=== PATIENT | female | born 2000 | race American Indian/Alaskan Native ===

== ENCOUNTER 2019-09-07 16:56 | Emergency (ER) | payer SELFPAY ==
--- NOTE | 2019-09-07 17:39 | EDM.PDOC ---
ED HPI GENERAL MEDICAL PROBLEM - General Chief Complaint: [employer] Problem Stated Complaint: BLEEDING, ABOUT 5 WEEKS Time Seen by Provider: 09/07/19 17:33 Source of Information: Reports: Patient History Limitations: Reports: No Limitations - History of Present Illness INITIAL COMMENTS - FREE TEXT/NARRATIVE: HISTORY AND PHYSICAL: History of present illness: Patient is a 19-year-old female presents to the ED with concern of bleeding in . Patient states she took a home test 3 days ago and was positive. This morning had a small amount of blood on the tissue when she wiped. She states LMP was July 26. She stopped her control the middle of July and has not had a period since stopping it. She denies any abdominal pain. Review of systems: As per history of present illness and below otherwise all systems reviewed and negative. Past medical history: As per history of present illness and as reviewed below otherwise noncontributory. Surgical history: As per history of present illness and as reviewed below otherwise noncontributory. Social history: No reported history of drug or alcohol abuse. Family history: As per history of present illness and as reviewed below otherwise noncontributory. Physical exam: General: Patient sitting comfortably in no acute distress and nontoxic appearing HEENT: Atraumatic, normocephalic, pupils reactive, negative for conjunctival pallor or scleral icterus, mucous membranes moist, throat clear, neck supple, nontender, trachea midline. No meningeal signs. Lungs: Clear to auscultation, breath sounds equal bilaterally, chest nontender. Heart: S1S2, regular, negative for clicks, rubs, or overt murmur. Abdomen: Soft, nondistended, nontender. Negative for masses or hepatosplenomegaly. Negative for costovertebral tenderness. No rigidity, rebound , guarding. Pelvis: Stable nontender. Genitourinary: Deferred. Rectal: Deferred. Extremities: Atraumatic, negative for cords or calf pain. Neurovascular unremarkable. Neuro: Awake, alert, oriented. Cranial nerves II through XII unremarkable. Cerebellum unremarkable. Motor and sensory unremarkable throughout. Exam nonfocal. Notes: Diagnostics: urine hcg, CBC, ABO/RH, HCG quant Therapeutics: none Prescriptions: none Impression: Vaginal bleeding in Plan: Pelvic rest as instructed Follow up with meat team member on Monday, please call to schedule an appointment Return to ED as needed as discussed Definitive disposition and diagnosis as appropriate pending reevaluation and review of above. - Related Data Allergies Allergy/AdvReac Type Severity Reaction Status Date / Time No Known Allergies Allergy Verified 09/07/19 17:14 Home Meds: Home Meds . [No Known Home Meds] 09/07/19 [History] Past Medical History - Past Health History Medical/Surgical History: Denies Medical/Surgical History - Infectious Disease History Infectious Disease History: Reports: None Social & Family History - Family History Family Medical History: Noncontributory - Tobacco Use Smoking Status *Q: Never Smoker - Caffeine Use Caffeine Use: Reports: None - Recreational Drug Use Recreational Drug Use: No ED ROS GENERAL - Review of Systems Review Of Systems: Comprehensive ROS is negative, except as noted in HPI. ED EXAM - Physical Exam Exam: See Below (see dictation) Course - Vital Signs Last Recorded V/S: Last Vital Signs Temp 96.8 F L 09/07/19 19:26 Pulse 85 09/07/19 19:26 Resp 16 09/07/19 19:26 BP 113/71 09/07/19 19:26 Pulse Ox 97 09/07/19 19:26 - Orders/Labs/Meds Labs: Laboratory Tests 09/07/19 09/07/19 09/07/19 Range/Units 17:14 17:46 17:46 WBC 10.66 (4.0-11.0) K/uL RBC 4.66 (4.30-5.90) M/uL Hgb 14.6 (12.0-16.0) g/dL Hct 40.1 (36.0-46.0) % MCV 86.1 (80.0-98.0) fL MCH 31.3 (27.0-32.0) pg MCHC 36.4 (31.0-37.0) g/dL RDW Std Deviation 38.1 (28.0-62.0) fl RDW Coeff of [place] 12 (11.0-15.0) % Plt Count 267 (150-400) K/uL MPV 9.90 (7.40-12.00) fL Neut % (Auto) 65.4 (48.0-80.0) % Lymph % (Auto) 25.4 (16.0-40.0) % [place] % (Auto) 5.8 (0.0-15.0) % Eos % (Auto) 3.2 (0.0-7.0) % Baso % (Auto) 0.2 (0.0-1.5) % Neut # (Auto) 7.0 H (1.4-5.7) K/uL Lymph # (Auto) 2.7 H (0.6-2.4) K/uL [place] # (Auto) 0.6 (0.0-0.8) K/uL Eos # (Auto) 0.3 (0.0-0.7) K/uL Baso # (Auto) 0.0 (0.0-0.1) K/uL Nucleated RBC % 0.0 /100WBC Nucleated RBCs # 0 K/uL HCG, Quant mIU/mL Urine HCG, Qual POSITIVE (NEGATIVE) Blood Type O POSITIVE 09/07/19 Range/Units 17:46 WBC (4.0-11.0) K/uL RBC (4.30-5.90) M/uL Hgb (12.0-16.0) g/dL Hct (36.0-46.0) % MCV (80.0-98.0) fL MCH (27.0-32.0) pg MCHC (31.0-37.0) g/dL RDW Std Deviation (28.0-62.0) fl RDW Coeff of [place] (11.0-15.0) % Plt Count (150-400) K/uL MPV (7.40-12.00) fL Neut % (Auto) (48.0-80.0) % Lymph % (Auto) (16.0-40.0) % [place] % (Auto) (0.0-15.0) % Eos % (Auto) (0.0-7.0) % Baso % (Auto) (0.0-1.5) % Neut # (Auto) (1.4-5.7) K/uL Lymph # (Auto) (0.6-2.4) K/uL [place] # (Auto) (0.0-0.8) K/uL Eos # (Auto) (0.0-0.7) K/uL Baso # (Auto) (0.0-0.1) K/uL Nucleated RBC % /100WBC Nucleated RBCs # K/uL HCG, Quant 90318.0 mIU/mL Urine HCG, Qual (NEGATIVE) Blood Type Departure - Departure Time of Disposition: 18:46 Disposition: Home, Self-Care 01 Condition: Good Clinical Impression: Vaginal bleeding during - Discharge Information Instructions: Vaginal Bleeding During , First Trimester Referrals: PCP,None [Primary Care Provider] - Forms: ED Department Discharge Additional Instructions: The following information is given to patients seen in the emergency department who are being discharged to home. This information is to outline your options for follow-up care. We provide all patients seen in our emergency department with a follow-up referral. The need for follow-up, as well as the timing and circumstances, are variable depending upon the specifics of your emergency department visit. If you don't have a primary care physician on staff, we will provide you with a referral. We always advise you to contact your personal physician following an emergency department visit to inform them of the circumstance of the visit and for follow-up with them and/or the need for any referrals to a consulting specialist. The emergency department will also refer you to a specialist when appropriate. This referral assures that you have the opportunity for follow-up care with a specialist. All of these measure are taken in an effort to provide you with optimal care, which includes your follow-up. Under all circumstances we always encourage you to contact your private physician who remains a resource for coordinating your care. When calling for follow-up care, please make the office aware that this follow-up is from your recent emergency room visit. If for any reason you are refused follow-up, please contact the [facility] Emergency Department at and asked to speak to the emergency department charge nurse. [facility] [address] [place] [address] [facility] [address] [place] [address] [facility] [address] [place] [address] Pelvic rest as instructed Follow up with meat team member on Monday, please call to schedule an appointment Return to ED as needed as discussed Sepsis Event Note - Evaluation Sepsis Screening Result: No Definite Risk - Focused Exam Vital Signs: Vital Signs Temp Pulse Resp BP Pulse Ox 09/07/19 19:26 96.8 F L 85 16 113/71 97 09/07/19 17:14 98.3 F 100 18 112/69 98 Date Exam was Performed: 09/07/19 Time Exam was Performed: 19:40
== END 2019-09-07 19:26 | disposition home or self-care (01) ==
LOC: MW.ED 16:56
DX: O20.9 Hemorrhage in early pregnancy, unspecified (principal); Z3A.01 Less than 8 weeks gestation of pregnancy
CPT/HCPCS: 36415; 81025; 84702; 85025; 86900; 86901; 99282; 99284